=== PATIENT | female | born 1970 | race Caucasian/White ===

== ENCOUNTER 2020-02-26 10:30 | Outpatient (RCR) | payer OTHER, SELFPAY | END 2020-03-05 23:55 | disposition home or self-care (01) | LOC: HO.PAOS 10:30 | PROVIDERS: Visit Provider Psychologist | DX: F43.10 Post-traumatic stress disorder, unspecified (principal); F41.1 Generalized anxiety disorder | CPT/HCPCS: 90834 ==

== ENCOUNTER → 2020-03-04 10:04 | Outpatient (BNVA) | payer OTHER, SELFPAY | PROVIDERS: Visit Provider Anesthesiology | DX: G43.019 Migraine without aura, intractable, without status migrainosus (principal); G43.009 Migraine without aura, not intractable, without status migrainosus | CPT/HCPCS: 99202 ==

== ENCOUNTER 2021-12-09 16:09 | Outpatient (REF) | payer OTHER, SELFPAY ==
--- NOTE | ~2021-12-09 | MR_ITS ---
EXAMINATION: MRI BRAIN WITHOUT CONTRAST CLINICAL INFORMATION: Migraine without aura. COMPARISON: Brain MRI 10/30/2020. TECHNIQUE: Multiplanar MR imaging of the brain was performed without contrast. FINDINGS: There are a few scattered nonspecific foci of T2 FLAIR signal hyperintensity within the periventricular white matter. No acute territorial infarct. No pathological magnetic susceptibility artifact. Intracranial vascular flow voids are maintained. There is no intracranial mass effect midline shift. No abnormal extra-axial collection. Lateral and third ventricles are normal. No hydrocephalus. Midline structures including the cervicomedullary junction are normal. No acute bone marrow signal changes. Again there are chronic postoperative changes related to a right parotidectomy. There is no mastoid middle ear effusion. No active paranasal sinus disease. Globes and orbits are symmetric. MR/MR head/brain wo con IMPRESSION: No substantial changed prior imaging. There are a few scattered nonspecific signal changes within the supratentorial white matter. No acute territorial infarct or hemorrhage. No abnormal intracranial mass or hydrocephalus. Chronic changes related to a right parotidectomy are partially included within [id number] of this examination.
== END 2021-12-09 16:10 | disposition home or self-care (01) ==
LOC: HO.MRI 16:09
PROVIDERS: Visit Provider Psychiatry & Neurology Neurology
DX: G43.009 Migraine without aura, not intractable, without status migrainosus (principal)
CPT/HCPCS: 70551

== ENCOUNTER 2022-12-05 10:16 | Outpatient (AMB) | payer MEDICARE, MEDICAID, SELFPAY ==
--- NOTE | 2022-12-05 10:22 | A.OFFVIS_ITS ---
Intake Vital Signs 12/05/22 10:28 Height 5 ft 2 in Weight 107 lb 8 oz BMI 19.7 BP 108/69 Blood Pressure Location Rt brachial Position Sitting Pulse 71 Pulse Source Pulse Oximeter Pulse Oximetry (%) 98 Oxygen Delivery Method Room Air Intake Visit Reasons: Increasing Migraine Pain Intake Note: Pt here for increasing migraine pain Allergies No Known Allergies Allergy (Verified 12/05/22 10:29) Medication List - Last Reconciled 12/05/22 by Heidi Beck RN trazodone 100 mg PO BEDTIME PRN HPI HPI Comments History of Present Illness Details Karla is back in my office after year of absence. She reported that she eliminated all caffeinated beverages. She tried aerobic exercises. She tried all the medications known to contemporary medicine to treat her migraines and tension headaches. She reports 3 types of the headaches. She reports constant aching circumferential pain surrounding her entire head. She also reports intermittent every day waxing and waning migraine headache on the right. She also reports sharp short-acting stabbing pain starting from the rate side of the scientology and going down deep to the skull to the level of her nose. She was under care of at least 2 neurologists. She had multiple images of her brain without any evidence of pathology. She tried Fioricet which resulted in minimal pain improvement however she developed rebound headaches after Fioricet. She continues to take Excedrin with caffeine with minimal improvement. 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 She tried Botox injection with no results. She tried Aimovig and ajovi injections without significant success. She found atypical reaction on triptans which aggravated her pain. She tried prevention medications for her migraine including better blockers and calcium channel blockers. I have nothing else for this patient on the table to offer but pterigo palatine nerve block . I will schedule her for couple of days to attend this office to be admitted for the block. Prior: very pleasant 49 years old female who presents in my office with complains on migraine. She has a common migraine on the most frequently right side of her head starting in the frontal area and radiating to the temporal right side. She reports that the migraines are being aggravated by bright light and perfumes. She he reports that quite places and darkness alleviate her migraine but not to extend adequate function. 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 She tried many different ways to treat her migraine she started with sumatriptan. Which actually paradoxically aggravate her pain. She continues to take Fioricet for migraines. She tried nifedipine for migraine. She never tried any better blockers. She consumes a lot of caffeinated beverages and caffeine with her Fioricet. She tried buttocks injections which resulted in no relief. She tried calcitonin receptor antagonists including I am of the with minimal help at the beginning of the therapy however following doses did not help with migraine headaches. She denies any significant past medical history. 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 She is a poor candidate for chronic opioid therapy [facility] Medical History (Updated 12/06/22 @ 07:06 by Tiburcio Diaz MD) Common migraine with intractable migraine Common migraine Review of Systems Const All systems reviewed & are unremarkable except as noted in HPI and below Reports as per HPI ENT Reports Normal hearing present Card Reports no additional complaints Resp Reports no additional complaints GI Reports no additional complaints Reports no additional complaints Musc Reports as per HPI Neuro Reports as per HPI, Reports Normal hearing present, Denies Abnormal speech present, Denies confusion and Denies Sensory deficit (Neuro) Psych Denies confusion Physical Exam Vital Signs: Last Vital Signs Pulse 71 12/05/22 10:28 BP 108/69 12/05/22 10:28 Pulse Ox 98 12/05/22 10:28 Oxygen Delivery Method Room Air 12/05/22 10:28 BMI result Body Mass Index 19.7 Const General: healthy appearing, comfortable, no acute distress, well developed, alert and well groomed; No confusion Orientation/consciousness: No confusion Eyes Other: Reports photosensitivity. Pupils are equal in size and reactive to light and accommodation. General: appearance normal, both eyes and all related structures Pupils: Equal, round and reactive pupils present EOM: EOMs intact bilaterally Neck Neck: Yes full ROM Chest Chest palpation & inspection: normal inspection of the chest Resp Effort & Inspection: normal respiratory effort, able to speak in complete sentences, normal respiratory pattern, no audible wheezes and no cough Cardio Jugular venous distension: no JVD Rate: regular rate and Other (Heart rate 100 beats per minute.) GI Inspection: Yes normal to inspection Neuro General: No confusion Cranial nerves: Yes Equal, round and reactive pupils present and Yes Normal hearing present Speech: No Abnormal speech present Gait exam (Neuro): Normal gait present Motor exam (neuro): 5/5 motor strength present throughout Sensory Exam: No Sensory deficit (Neuro) Extrem General: No pedal edema Psych Speech and movement: Normal speech and movement present Affect: normal affect Attitude: cooperative Thought process: Normal thought process present Thought content: Normal thought content present Insight: Good insight present (Psych) Judgement: Good judgement present (Psych) Assessment & Plan Assessment & Plan (1) Common migraine: Comment: I here by testify that I spent 30 minutes in conversation with this patient explaining her symptoms exploring her lifestyle and planning her care. Code(s): G43.009 - Migraine without aura, not intractable, without status migrainosus (2) Common migraine with intractable migraine: Code(s): G43.019 - Migraine without aura, intractable, without status migrainosus (3) Tension headache: Code(s): G44.209 - Tension-type headache, unspecified, not intractable Plan recommendations. 1. She eliminated all possible dietary migraine provocations products, however she found impossible to function without Excedrin which contains caffeine. 2. She tried aerobic exercise i however found her migraine being exacerbated during the exercise and impossible to perform those exercises. 3. She reported that propranolol did not help her migraine.. 4. She reports improvement of her migraines on prednisone. Possibility exists to start her on chronic prednisone for her migraine provided she understands all the risks including osteoporosis, diabetes, immunosuppression. 5. Before that I will plan to perform in couple of days pterigo palatine plexus block without sedation here in the office. Coding Level of Care Code Est Pt Level 4 (58168) Diagnoses Common migraine G43.009 Common migraine with intractable migraine G43.019 Tension headache G44.209
[2022-12-05 10:28] VITALS: BP 108/69; PULSE 71; O2SAT 98; BMI 19.7
== END 2022-12-05 11:26 | disposition home or self-care (01) ==
PROVIDERS: PCP Physician Assistant Medical; Visit Provider Anesthesiology
DX: G43.009 Migraine without aura, not intractable, without status migrainosus (principal); G43.019 Migraine without aura, intractable, without status migrainosus; G44.209 Tension-type headache, unspecified, not intractable
CPT/HCPCS: 99214

== ENCOUNTER → 2022-12-05 10:16 | Outpatient (BNVA) | payer MEDICARE, MEDICAID, SELFPAY | PROVIDERS: Visit Provider Anesthesiology | DX: G43.019 Migraine without aura, intractable, without status migrainosus (principal); G44.209 Tension-type headache, unspecified, not intractable | CPT/HCPCS: 99212 ==

== ENCOUNTER 2022-12-07 08:00 | Outpatient (AMB) | payer MEDICARE, MEDICAID, SELFPAY ==
--- NOTE | 2022-12-07 08:04 | A.OFFVIS_ITS ---
Intake Vital Signs 12/07/22 08:38 Height 5 ft 2 in Weight 108 lb BMI 19.8 BP 109/62 Blood Pressure Location Lt brachial Position Sitting Respiration 16 Pulse 71 Pulse Source Pulse Oximeter Pulse Oximetry (%) 99 Oxygen Delivery Method Room Air Intake Visit Reasons: PTETRIGO-PALATINE PLEXUS BLOCK Allergies No Known Allergies Allergy (Verified 12/07/22 08:39) HPI HPI Comments History of Present Illness Details Karla is back in my office for the performance of pterigo-palatine plexus block here in the office description of the block see as below. She reports her pain today in the range of 3/10. She reports that pain today mostly global in nature and not unilateral one-sided migraine. Reports that she took Excedrin after year of absence. She reported that she eliminated all c affeinated beverages. She tried aerobic exercises. She tried all the medications known to contemporary medicine to treat her migraines and tension headaches. She reports 3 types of the headaches. She reports constant aching circumferential pain surrounding her entire head. She also reports intermittent every day waxing and waning migraine headache on the right. She also reports sharp short-acting stabbing pain starting from the rate side of the anabaptism and going down deep to the skull to the level of her nose. She was under care of at least 2 neurologists. She had multiple images of her brain without any evidence of pathology. She tried Fioricet which resulted in minimal pain improvement however she developed rebound headaches after Fioricet. She continues to take Excedrin with caffeine with minimal improvement. 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 She tried Botox injection with no results. She tried Aimovig and ajovi injections without significant success. She found atypical reaction on triptans which aggravated her pain. She tried prevention medications for her migraine including better blockers and calcium channel blockers. I have nothing else for this patient on the table to offer but pterigo palatine nerve block . I will schedule her for couple of days to attend this office to be admitted for the block. Prior: very pleasant 49 years old female who presents in my office with complains on migraine. She has a common migraine on the most frequently right side of her head starting in the frontal area and radiating to the temporal right side. She reports that the migraines are being aggravated by bright light and perfumes. She he reports that quite places and darkness alleviate her migraine but not to extend adequate function. 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 She tried many different ways to treat her migraine she started with sumatriptan. Which actually paradoxically aggravate her pain. She continues to take Fioricet for migraines. She tried nifedipine for migraine. She never tried any better blockers. She consumes a lot of caffeinated beverages and caffeine with her Fioricet. She tried buttocks injections which resulted in no relief. She tried calcitonin receptor antagonists including I am of the with minimal help at the beginning of the therapy however following doses did not help with migraine headaches. She denies any significant past medical history. 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 She is a poor candidate for chronic opioid therapy [facility] Medical History (Updated 12/06/22 @ 07:06 by Tiburcio Diaz MD) Common migraine with intractable migraine Common migraine Review of Systems Const All systems reviewed & are unremarkable except as noted in HPI and below ENT Reports Normal hearing present Neuro Reports Normal hearing present, Denies Abnormal speech present, Denies confusion and Denies Sensory deficit (Neuro) Psych Denies confusion Physical Exam Vital Signs: Last Vital Signs Pulse 71 12/07/22 08:38 Resp 16 12/07/22 08:38 BP 109/62 12/07/22 08:38 Pulse Ox 99 12/07/22 08:38 Oxygen Delivery Method Room Air 12/07/22 08:38 BMI result Body Mass Index 19.8 Const General: healthy appearing, comfortable, no acute distress, well developed, alert and well groomed; No confusion Orientation/consciousness: No confusion Eyes Other: Reports photosensitivity. Pupils are equal in size and reactive to light and accommodation. General: appearance normal, both eyes and all related structures Pupils: Equal, round and reactive pupils present EOM: EOMs intact bilaterally Neck Neck: Yes full ROM Chest Chest palpation & inspection: normal inspection of the chest Resp Effort & Inspection: normal respiratory effort, able to speak in complete sentences, normal respiratory pattern, no audible wheezes and no cough Cardio Jugular venous distension: no JVD Rate: regular rate and Other (Heart rate 100 beats per minute.) GI Inspection: Yes normal to inspection Neuro General: No confusion Cranial nerves: Yes Equal, round and reactive pupils present and Yes Normal hearing present Speech: No Abnormal speech present Gait exam (Neuro): Normal gait present Motor exam (neuro): 5/5 motor strength present throughout Sensory Exam: No Sensory deficit (Neuro) Extrem General: No pedal edema Psych Speech and movement: Normal speech and movement present Affect: normal affect Attitude: cooperative Thought process: Normal thought process present Thought content: Normal thought content present Insight: Good insight present (Psych) Judgement: Good judgement present (Psych) Assessment & Plan Assessment & Plan (1) Common migraine: Comment: I here by testify that I spent 30 minutes in conversation with this patient explaining her symptoms exploring her lifestyle and planning her care. Code(s): G43.009 - Migraine without aura, not intractable, without status migrainosus (2) Common migraine with intractable migraine: Code(s): G43.019 - Migraine without aura, intractable, without status migrainosus Plan: Patient was positioned supine on the examination table the Q-tips on the hollow straws soaked in mixture of lidocaine 4% and bupivacaine 0.5% were slowly inserted into bilateral lost nostrils and slowly advanced alongside the superior turbinate until the stop felt. After that on the period of time of 1 hour every 15 minutes additional small amount of lidocaine and bupivacaine were inserted into the hole of straw of the Q-tips bilaterally. Total dose of lidocaine mixture with bupivacaine in concentration as above was no more than 2 mL. The patient tolerated procedure well. She reported appropriate numbness in posterior pharyngeal area which will be corresponding to the pterygopalatine plexus. Upon completion of the procedure the straws were removed the tips were intact. The patient tolerated procedure fairly well. (3) Tension headache: Code(s): G44.209 - Tension-type headache, unspecified, not intractable Plan: I recommended this patient to seek [facility] at [facility] with her migraine headaches. The list of [facility] was given to the patient. I also recommended her to try ibuprofen 400 mg q.6 hours on o'clock for the next 15 days not p.r.n. and then stop. Try not to take Excedrin during this course of treatment. This will allow her to wean herself off caffeine. Maybe this will be helpful for her headache. Plan 1. She eliminated all possible dietary migraine provocations products, however she found impossible to function without Excedrin which contains caffeine. 2. She tried aerobic exercise i however found her migraine being exacerbated during the exercise and impossible to perform those exercises. 3. She reported that propranolol did not help her migraine.. 4. She reports improvement of her migraines on prednisone. Possibility exists to start her on chronic prednisone for her migraine provided she understands all the risks including osteoporosis, diabetes, immunosuppression. 5. I recommended this patient to seek care at [facility] with her migraine headaches. The list of [facility] was given to the patient. 6. I also recommended her to try ibuprofen 400 mg q.6 hours on o'clock for the next 15 days not p.r.n. and then stop. Try not to take Excedrin during this course of treatment. This will allow her to wean herself off caffeine. Maybe this will be helpful for her headache. Coding Level of Care Code Est Pt Level 5 (80403) Procedure Only Diagnoses Common migraine G43.009 Common migraine with intractable migraine G43.019 Tension headache G44.209
[2022-12-07 08:38] VITALS: BP 109/62; PULSE 71; RESP 16; O2SAT 99; BMI 19.8
== END 2022-12-07 10:08 | disposition home or self-care (01) ==
PROVIDERS: PCP Physician Assistant Medical; Visit Provider Anesthesiology
DX: G43.009 Migraine without aura, not intractable, without status migrainosus (principal); G43.019 Migraine without aura, intractable, without status migrainosus; G44.209 Tension-type headache, unspecified, not intractable
CPT/HCPCS: 64999; 99214

== ENCOUNTER → 2022-12-07 08:00 | Outpatient (BNVA) | payer MEDICARE, MEDICAID, SELFPAY | PROVIDERS: Visit Provider Anesthesiology | DX: G43.009 Migraine without aura, not intractable, without status migrainosus (principal); G43.019 Migraine without aura, intractable, without status migrainosus; G44.209 Tension-type headache, unspecified, not intractable | CPT/HCPCS: 64999; 99212 ==